=== PATIENT | female | born 1985 | race Caucasian/White ===

== ENCOUNTER 2020-03-29 16:34 | Outpatient (REF) | payer OTHER, SELFPAY ==
[2020-03-29 17:38] LABS: HCG Quantitative 19 mIU/mL
== END 2020-03-29 16:35 | disposition home or self-care (01) ==
LOC: HO.LAB 16:34
PROVIDERS: PCP Internal Medicine; Visit Provider Obstetrics & Gynecology
DX: O02.1 Missed abortion (principal)
CPT/HCPCS: 84702

== ENCOUNTER 2020-05-24 14:00 | Outpatient (REF) | payer OTHER, SELFPAY ==
[2020-05-24 15:54] LABS: HCG Quantitative < 2 mIU/mL
== END 2020-05-24 14:01 | disposition home or self-care (01) ==
LOC: HO.LAB 14:00
PROVIDERS: PCP Internal Medicine; Visit Provider Obstetrics & Gynecology
DX: O02.1 Missed abortion (principal)
CPT/HCPCS: 81025; 84702; 99212

== ENCOUNTER → 2020-08-12 11:27 | Outpatient (BNVA) | payer OTHER, SELFPAY | PROVIDERS: PCP Internal Medicine; Visit Provider Advanced Practice Midwife | DX: N92.6 Irregular menstruation, unspecified (principal); Z34.90 Encounter for supervision of normal pregnancy, unspecified, unspecified trimester | CPT/HCPCS: 99212 ==

== ENCOUNTER 2020-08-19 10:20 | Outpatient (REF) | payer OTHER, SELFPAY ==
--- NOTE | ~2020-08-19 | US_ITS ---
EXAMINATION: OBSTETRICAL ULTRASOUND, FIRST TRIMESTER HISTORY: 35-year-old at the with unknown dates NT screening COMPARISON: 03/21/2020 TECHNIQUE: Real time transabdominal imaging with color and M-mode Doppler. FINDINGS: A single, live IUP CRL of 74.8 mm c/w 13.5wks is noted. Heart Rate: 149 beats per minute. Normal yolk sac seen. NT was 1.5.mm. NB Present The embryo appears sonographically wnl for this GA. Right ovary is normal. Left ovary was not seen. GESTATIONAL AGE: 1. Established GA: Unknown wks 2. GA from [facility]: 13.5 wks ESTIMATED DATE OF DELIVERY: 1. Established VEE: N/A 2. VEE from [facility]: 02/19/2021 US/US OB 1T nuc measure IMPRESSION: A single live IUP CRL is consistent with 13.5 weeks, giving her VEE of 02/19/2021 NT of 1.5 mm MFM Consultation: I reviewed the ultrasound findings along with significance of NT measurement. The NT of less than 3mm is generally reassuring. However, the sensitivity for T21 detection is only 60%. I reviewed the availability of serum aneuploidy screening which includes cell-free DNA and placental protein based tests. I discussed the sensitivity, false-positive rate, and other limitations associated with each test. I also reviewed the availability of invasive diagnostic tests that are associated small but definite risk of miscarriage. We also reviewed the differences between screening tests and diagnostic tests. After our discussion, she opted for the First trimester screening that is based on cell-free DNA or non-invasive testing (NIPT). The result will be faxed to your office in approximately 7 days. A follow up at 18 weeks for survey has been scheduled. Thank you very much for this referral. Majority of this visit was spent reviewing her care and counselling her in face to face time: Time spent 30 min.
== END 2020-08-19 10:21 | disposition home or self-care (01) ==
LOC: HO.US 10:20
PROVIDERS: Absent Provider Obstetrics & Gynecology; PCP Internal Medicine; Visit Provider Advanced Practice Midwife
DX: O09.521 Supervision of elderly multigravida, first trimester (principal); Z3A.13 13 weeks gestation of pregnancy
CPT/HCPCS: 76813

== ENCOUNTER → 2020-08-24 11:08 | Outpatient (BNVA) | payer OTHER, SELFPAY | PROVIDERS: PCP Internal Medicine; Visit Provider Advanced Practice Midwife | DX: Z13.89 Encounter for screening for other disorder (principal) | CPT/HCPCS: 99212 ==

== ENCOUNTER 2020-08-29 10:22 | Outpatient (REF) | payer OTHER, SELFPAY ==
[2020-08-29 12:15] LABS: MANUAL DIFF FLAG NO
[2020-08-29 12:25] LABS: Basophils Percent Auto 0.1 % (0-2); Eosinophils Absolute Auto 0.1 X10*3/uL (0.0-0.4); Eosinophils Percent Auto 1.1 % (0-4); Hematocrit 34.3 % (37-47); Imm Gran Abs Auto 0.06 X10*3/uL (0.00-0.03); Imm Gran Pct Auto 0.8 % (0.0-0.4); Lymphocytes Absolute Auto 1.2 X10*3/uL (1.2-4.9); Lymphocytes Percent Auto 16.2 % (20-40); Mean Corpuscular HGB Conc 32.1 g/dl (31.0-35.0); Mean Corpuscular Hemoglobin 31.2 pg (27.0-33.0); Mean Corpuscular Volume 97.2 fL (80-98); Mean Platelet Volume 10.5 fL (9.4-12.3); Monocytes Absolute Auto 0.3 X10*3/uL (0.1-1.2); Monocytes Percent Auto 3.6 % (2-11); Neutrophils Absolute Auto 5.9 X10*3/uL (2.0-8.3); Neutrophils Percent Auto 78.2 % (45-73); Platelet Count 189 X10*3/uL (160-400); Red Blood Count 3.53 X10*6/uL (4.20-5.50); Red Cell Distribution Width 13.1 % (11.0-16.0); White Blood Count 7.6 X10*3/uL (4.8-10.8)
[2020-08-29 12:58] LABS: Glucose 1 Hour 119 mg/dL
[2020-08-29 13:17] LABS: Syphilis Screen Nonreactive (Nonreactive)
[2020-08-29 13:36] LABS: HCG Quantitative 29470 mIU/mL
[2020-08-29 14:35] LABS: Amphetamine Screen Urine Not Detected (Not Detect); Barbiturates, Urine Not Detected (Not Detect); Benzodiazepines Screen Urine Not Detected (Not Detect); Cannabinoid Screen Urine Not Detected (Not Detect); Cocaine Screen Urine Not Detected (Not Detect); Opiate Screen Urine Not Detected (Not Detect); Phencyclidine Screen Urine Not Detected (Not Detect)
[2020-08-30 04:36] LABS: HIV AB/AG Nonreactive (Nonreactive); HIV Num 1 0.07 S/CO (0.00-0.99)
[2020-08-30 04:42] LABS: HBsAGNum1 0.12 S/CO (0.00-0.99); Hepatitis B Surface Antigen Negative (Negative); ~HepC Num1 0.07 S/CO (0.00-0.79); ~Hepatitis C Antibody Nonreactive (Nonreactive)
[2020-08-31 09:47] LABS: Rubella IgG Antibody 1.26 Index
== END 2020-08-29 10:23 | disposition home or self-care (01) ==
LOC: HO.LAB 10:22
PROVIDERS: Obstetrics & Gynecology; PCP Internal Medicine; Visit Provider Advanced Practice Midwife
DX: O02.1 Missed abortion (principal)
CPT/HCPCS: 80307; 82951; 84702; 85025; 86762; 86780; 86787; 86803; 86850; 86900; 86901; 87086; 87340; 87389

== ENCOUNTER 2020-08-31 11:06 | Outpatient (REF) | payer OTHER, SELFPAY ==
[2020-08-31 16:39] LABS: CT PCR NOT DETECTED (Not Detect.); NG PCR NOT DETECTED (Not Detect.)
[2020-09-04 21:57] LABS: HPV 16 RNA NOT DETECTED (NOT DETECTED); HPV mRNA E6/E7 rflx Detected (Not Detected)
== END 2020-08-31 11:07 | disposition home or self-care (01) ==
LOC: HO.LAB 11:06
PROVIDERS: PCP Internal Medicine; Visit Provider Advanced Practice Midwife
DX: O09.522 Supervision of elderly multigravida, second trimester (principal); O09.292 Supervision of pregnancy with other poor reproductive or obstetric history, second trimester; Z3A.15 15 weeks gestation of pregnancy; Z91.018 Allergy to other foods; Z36.3 Encounter for antenatal screening for malformations
CPT/HCPCS: 36415; 81003; 87491; 87591; 87624; 87625; 88141; 88142; 99212

== ENCOUNTER 2020-09-23 12:44 | Outpatient (REF) | payer OTHER, SELFPAY ==
--- NOTE | ~2020-09-23 | US_ITS ---
EXAMINATION: US OBSTETRICAL CLINICAL INFORMATION: 35-year-old at 18.5 weeks of gestation Screening for anomaly [place]OW COMPARISON: 08/19/2020 TECHNIQUE: Real-time transabdominal ultrasound was performed using C1-5 megahertz transducer. FINDINGS: A single, active, fetus is seen in breech presentation. The placenta is posterior without previa, and the amniotic fluid volume is wnl. MEASUREMENTS: 1. Biparietal Diameter: 4.1 cm; 18.4 wks 2. Occipital Frontal Diameter: 5.4 cm 3. Head Circumference: 15.5 cm; 18.4 wks 4. Abdominal Circumference: 13.3 cm; 18.6 wks 5. Femur Length: 2.9 cm; 19.0 wks 6. Humerus Length: 2.8 cm; 18.6 wks 7. Tibia Length: 2.5 cm; 18.6 wks 8. Ulna Length: 2.5 cm; 19.0 wks 9. Lateral ventricle: 0.6 cm 10. Cerebellum: 1.4 cm; 19.1 wks 11. Cisterna Magna: 0.35 cm 12. Nuchal Fold: 2.9 mm 13. Heart Rate: 142 beats per minute Rt ovary: normal Lt ovary: normal Cervical length 3.8 cm on T/A. GESTATIONAL AGE: 1. Established GA: 18.5 wks 2. GA from [facility]: 18.6 wks ESTIMATED DATE OF DELIVERY: 1. Established VEE: 02/19/2021 2. VEE from [facility]: 02/18/2021 ANATOMY: Isolated the echogenic intracardiac focus in the left ventricle. The visualized anatomy includes but not limited to: 1. Cranium: Normal 2. Intracranial anatomy: cavum septum pellucidi, lateral ventricles, choroid plexus, cerebellum, posterior fossa, third and fourth ventricles. 3. face: orbits, lip/palate, profile, nasal bone 4. Heart: EIF, four-chamber view of the heart, ventricular septum, foramen ovale, pulmonary vein, left and right outflow tracts, three-vessel view, 3 vessel trachea view, aortic and ductal arches, situs.. 5. Diaphragm: Normal 6. Abdominal wall: Normal 7. Cord Insertion: Normal 8. Spine: Cervical, thoracic, lumbar, sacral. 9. Stomach: Normal size and shape 10. Right Kidney: Normal 11. Left Kidney: Normal 12. 3 vessel cord: Normal 13. Upper extremity: Open hands, fifth digit. 14. Lower extremity: Tibia, fibula, bilateral feet. 15. Bladder: Normal 16. Genitalia: Female, patient aware US/US OB /maternal detail IMPRESSION: 1. Single, living, intrauterine with appropriate biometry. 2. Isolated echogenic intracardiac focus 3. Normal amniotic fluid volume DISCUSSION: I reviewed today's ultrasound findings. I reviewed the association between EIF and the T 21. The likelihood ratio is approximately 2. She had low risk NIPT. I informed her that in this setting, isolated EIF is considered a normal variant. Aside from its association with Down syndrome, the clinical significance of EIF is unknown. We discussed the limitations of ultrasound in diagnosing aneuploidy and other congenital abnormalities. I reviewed the differences between screening test and diagnostic test. Amniocentesis was discussed and declined. She was informed that the baseline incidence of congenital abnormalities is approximately 3-5%. Not all these conditions are diagnosable in utero. RECOMMENDATIONS: 1. Follow-up as clinically indicated. Thank you for allowing me to participate in her care. Total time 30 minutes. The time spent was devoted to counseling the patient about the disease and diagnosis, coordinating care including reviewing her records, pertinent lab data and studies, as well as discussing diagnostic evaluation and workup, plan therapeutic interventions and future disposition of care. This includes any additional research needed to obtain further information in formulating the plan of care of this patient. This note was generated with a voice recognition program. Please excuse any errors which may have been overlooked during my review of this note. Sometimes these errors may affect the content or meaning of a given sentence.
== END 2020-09-23 12:45 | disposition home or self-care (01) ==
LOC: HO.US 12:44
PROVIDERS: PCP Internal Medicine; Visit Provider Advanced Practice Midwife
DX: O09.522 Supervision of elderly multigravida, second trimester (principal); O35.9XX0 Maternal care for (suspected) fetal abnormality and damage, unspecified, not applicable or unspecified; Z3A.18 18 weeks gestation of pregnancy
CPT/HCPCS: 76811

== ENCOUNTER → 2020-09-28 11:18 | Outpatient (BNVA) | payer OTHER, SELFPAY | PROVIDERS: PCP Internal Medicine; Visit Provider Obstetrics & Gynecology | DX: R87.610 Atypical squamous cells of undetermined significance on cytologic smear of cervix (ASC-US) (principal); R87.810 Cervical high risk human papillomavirus (HPV) DNA test positive | CPT/HCPCS: 57420; 57452; 99212 ==

== ENCOUNTER → 2020-10-11 14:27 | Outpatient (BNVA) | payer OTHER, SELFPAY | PROVIDERS: PCP Internal Medicine; Visit Provider Physician Assistant | DX: K59.09 Other constipation (principal); Z34.90 Encounter for supervision of normal pregnancy, unspecified, unspecified trimester | CPT/HCPCS: 99202 ==

== ENCOUNTER → 2020-11-01 11:08 | Outpatient (BNVA) | payer OTHER, SELFPAY | PROVIDERS: PCP Internal Medicine; Visit Provider Physician Assistant ==

== ENCOUNTER → 2020-11-03 15:04 | Outpatient (BNVA) | payer OTHER, SELFPAY | PROVIDERS: PCP Internal Medicine; Visit Provider Advanced Practice Midwife | DX: Z34.82 Encounter for supervision of other normal pregnancy, second trimester (principal); Z3A.24 24 weeks gestation of pregnancy; R19.8 Other specified symptoms and signs involving the digestive system and abdomen | CPT/HCPCS: 81003; 99212 ==

== ENCOUNTER → 2020-12-01 14:32 | Outpatient (BNVA) | payer OTHER, SELFPAY | PROVIDERS: PCP Internal Medicine; Visit Provider Advanced Practice Midwife | DX: Z34.93 Encounter for supervision of normal pregnancy, unspecified, third trimester (principal); Z3A.28 28 weeks gestation of pregnancy | CPT/HCPCS: 81003; 99212 ==

== ENCOUNTER 2020-12-12 10:25 | Outpatient (REF) | payer OTHER, SELFPAY ==
[2020-12-12 12:01] LABS: Hematocrit 31.5 % (37-47); Hemoglobin 10.3 g/dl (12.0-16.0); Mean Corpuscular HGB Conc 32.7 g/dl (31.0-35.0); Mean Corpuscular Hemoglobin 31.9 pg (27.0-33.0); Mean Corpuscular Volume 97.5 fL (80-98); Mean Platelet Volume 10.3 fL (9.4-12.3); Platelet Count 170 X10*3/uL (160-400); Red Blood Count 3.23 X10*6/uL (4.20-5.50); Red Cell Distribution Width 12.9 % (11.0-16.0); White Blood Count 7.1 X10*3/uL (4.8-10.8)
[2020-12-12 12:17] LABS: Glucose 1 Hour PP 50gm Dose 127 mg/dL (60-140)
[2020-12-12 12:42] LABS: Syphilis Screen Nonreactive (Nonreactive)
== END 2020-12-12 10:26 | disposition home or self-care (01) ==
LOC: HO.LAB 10:25
PROVIDERS: PCP Internal Medicine; Visit Provider Advanced Practice Midwife
DX: O09.529 Supervision of elderly multigravida, unspecified trimester (principal); Z20.2 Contact with and (suspected) exposure to infections with a predominantly sexual mode of transmission
CPT/HCPCS: 36415; 85027; 86780

== ENCOUNTER → 2020-12-15 13:03 | Outpatient (BNVA) | payer OTHER, SELFPAY | PROVIDERS: PCP Internal Medicine; Visit Provider Advanced Practice Midwife | DX: O99.213 Obesity complicating pregnancy, third trimester (principal); Z3A.30 30 weeks gestation of pregnancy | CPT/HCPCS: 99212 ==

== ENCOUNTER 2020-12-23 10:13 | Outpatient (REF) | payer OTHER, SELFPAY ==
--- NOTE | ~2020-12-23 | US_ITS ---
EXAMINATION: OBSTETRICAL ULTRASOUND, Follow up HISTORY: 35-year-old at the 31.5 weeks of gestation AMA High BMI COMPARISON: 09/23/2020 TECHNIQUE: Real time transabdominal imaging with color and M-mode Doppler. PRESENTATION: Vertex PLACENTA LOCATION: Posterior without previa AMNIOTIC FLUID: ANAYELI 12.4 cm MEASUREMENTS: 1. Biparietal Diameter: 7.8 cm; 31.2 wks 2. Head Circumference: 29.2 cm; 32.2 wks 3. Abdominal Circumference: 27.1 cm; 31.2 wks 4. Femur Length: 6.1 cm; 31.5 wks 5. Heart Rate: 143 beats per minute WEIGHT: EFW: 1764 grams (3 lbs 14 oz) -- 30 %. BIOPHYSICAL PROFILE: Motion: 2 Tone: 2 Breathin Amniotic Fluid: 2 Total score: 8/8 GESTATIONAL AGE: 1. Established GA: 31.5 wks 2. GA from [facility]: 31.5 wks ESTIMATED DATE OF DELIVERY: 1. Established VEE: 02/19/2021 2. VEE from [facility]: 02/19/2021 US/US OB follow up IMPRESSION: 1. A single active fetus is in vertex presentation. 2. Size equals dates 3. Reassuring biophysical profile with normal amniotic fluid index. Follow up when necessary. Thank you very much for this referral. This note was generated with a voice recognition program. Please excuse any errors which may have been overlooked during my review of this note. Sometimes these errors may affect the content or meaning of a given sentence.
== END 2020-12-23 10:14 | disposition home or self-care (01) ==
LOC: HO.US 10:13
PROVIDERS: Visit Provider Advanced Practice Midwife
DX: O99.213 Obesity complicating pregnancy, third trimester (principal); E66.9 Obesity, unspecified
CPT/HCPCS: 76816

== ENCOUNTER → 2020-12-29 10:48 | Outpatient (BNVA) | payer OTHER, SELFPAY | PROVIDERS: PCP Internal Medicine; Visit Provider Advanced Practice Midwife | DX: O99.213 Obesity complicating pregnancy, third trimester (principal); O09.523 Supervision of elderly multigravida, third trimester; Z3A.32 32 weeks gestation of pregnancy | CPT/HCPCS: 81003; 99212 ==

== ENCOUNTER → 2021-01-12 15:05 | Outpatient (BNVA) | payer OTHER, SELFPAY | PROVIDERS: PCP Internal Medicine; Visit Provider Obstetrics & Gynecology | DX: O99.213 Obesity complicating pregnancy, third trimester (principal); E66.9 Obesity, unspecified; Z3A.34 34 weeks gestation of pregnancy | CPT/HCPCS: 99212 ==

== ENCOUNTER 2021-01-26 15:22 | Outpatient (REF) | payer OTHER, SELFPAY | END 2021-01-26 15:23 | disposition home or self-care (01) | LOC: HO.LAB 15:22 | PROVIDERS: PCP Internal Medicine; Visit Provider Obstetrics & Gynecology | DX: O99.013 Anemia complicating pregnancy, third trimester (principal); Z3A.36 36 weeks gestation of pregnancy | CPT/HCPCS: 87081; 87147; 99212 ==

== ENCOUNTER 2021-01-27 10:02 | Outpatient (REF) | payer OTHER, SELFPAY ==
--- NOTE | ~2021-01-27 | US_ITS ---
EXAMINATION: OBSTETRICAL ULTRASOUND, Follow up HISTORY: 35-year-old at the 36.5 weeks of gestation AMA High BMI COMPARISON: 12/23/2020 TECHNIQUE: Real time transabdominal imaging with color and M-mode Doppler. PRESENTATION: Vertex PLACENTA LOCATION: Posterior without previa AMNIOTIC FLUID: ANAYELI 15.0 cm MEASUREMENTS: 1. Biparietal Diameter: 8.9 cm; 35.6 wks 2. Head Circumference: 33.2 cm; 37.6 wks 3. Abdominal Circumference: 32.6 cm; 36.4 wks 4. Femur Length: 7.0 cm; 36.1 wks 5. Heart Rate: 165 beats per minute WEIGHT: EFW: 2950 grams (6 lbs 8 oz) -- 48 %. BIOPHYSICAL PROFILE: Motion: 2 Tone: 2 Breathin Amniotic Fluid: 2 Total score: 8/8 GESTATIONAL AGE: 1. Established GA: 36.5 wks 2. GA from [facility]: 36.5 wks ESTIMATED DATE OF DELIVERY: 1. Established VEE: 02/19/2021 2. VEE from [facility]: 02/19/2021 US/US OB follow up IMPRESSION: 1. A single active fetus is in vertex presentation 2. Size equals dates 3. Reassuring testing Thank you very much for this referral. This note was generated with a voice recognition program. Please excuse any errors which may have been overlooked during my review of this note. Sometimes these errors may affect the content or meaning of a given sentence.
[2021-01-27 11:26] LABS: Hematocrit 32.1 % (37-47); Hemoglobin 10.6 g/dl (12.0-16.0); Mean Corpuscular Hemoglobin 31.9 pg (27.0-33.0); Mean Corpuscular Volume 96.7 fL (80-98); Mean Platelet Volume 10.4 fL (9.4-12.3); Platelet Count 164 X10*3/uL (160-400); Red Blood Count 3.32 X10*6/uL (4.20-5.50); Red Cell Distribution Width 13.5 % (11.0-16.0); White Blood Count 7.5 X10*3/uL (4.8-10.8)
[2021-01-27 11:57] LABS: Creatinine Urine 30.96 mg/dL; Total Protein Urine Random < 7 mg/dL (<12)
[2021-01-27 12:02] LABS: Alanine Aminotransferase 14 U/L (0-31); Aspartate Amino Transferase 16 U/L (5-31); Estimated Glomerular Filt Rate > 60
== END 2021-01-27 10:03 | disposition home or self-care (01) ==
LOC: HO.US 10:02
PROVIDERS: PCP Internal Medicine; Visit Provider Obstetrics & Gynecology
DX: O09.523 Supervision of elderly multigravida, third trimester (principal); O99.213 Obesity complicating pregnancy, third trimester; E66.9 Obesity, unspecified
CPT/HCPCS: 36415; 76816; 82565; 84156; 84450; 84460; 85027

== ENCOUNTER → 2021-02-02 10:35 | Outpatient (BNVA) | payer OTHER, SELFPAY | PROVIDERS: PCP Internal Medicine; Visit Provider Advanced Practice Midwife | DX: Z34.83 Encounter for supervision of other normal pregnancy, third trimester (principal); Z3A.37 37 weeks gestation of pregnancy | CPT/HCPCS: 59025; 99212 ==

== ENCOUNTER → 2021-02-07 14:12 | Outpatient (BNVA) | payer OTHER, SELFPAY | PROVIDERS: PCP Internal Medicine; Visit Provider Advanced Practice Midwife | DX: Z34.83 Encounter for supervision of other normal pregnancy, third trimester (principal); Z3A.38 38 weeks gestation of pregnancy | CPT/HCPCS: 59025; 81003; 99212 ==

== ENCOUNTER 2021-02-10 12:29 | Outpatient (REF) | payer OTHER, SELFPAY ==
--- NOTE | ~2021-02-10 | US_ITS ---
EXAMINATION: US OBSTETRICAL (BIOPHYSICAL PROFILE) CLINICAL INFORMATION: 35-year-old at the 38.0 weeks of gestation AMA High BMI COMPARISON: 01/27/2021 TECHNIQUE: Biophysical profile is performed over 30 minutes with assessment of breathing, gross body movement, tone, and qualitative amniotic fluid volume. FINDINGS: POSITION: Cephalic PLACENTA: Posterior without previa AMNIOTIC FLUID INDEX: 11.4 cm CARDIAC ACTIVITY: 134 beats per minute BIOPHYSICAL PROFILE: Motion: 2 Tone: 2 Breathin Amniotic Fluid: 2 The total biophysical score is 8/8 US/US OB biophysical profile IMPRESSION: 1. Single intrauterine gestation in vertex position. 2. Reassuring BPP and ANAYELI Thank you for allowing me to participate in her care. This note was generated with a voice recognition program. Please excuse any errors which may have been overlooked during my review of this note. Sometimes these errors may affect the content or meaning of a given sentence.
== END 2021-02-10 12:30 | disposition home or self-care (01) ==
LOC: HO.US 12:29
PROVIDERS: PCP Internal Medicine; Visit Provider Advanced Practice Midwife
DX: O09.523 Supervision of elderly multigravida, third trimester (principal); Z3A.38 38 weeks gestation of pregnancy
CPT/HCPCS: 76819

== ENCOUNTER 2021-02-16 13:34 | Outpatient (REF) | payer OTHER, SELFPAY | END 2021-02-16 13:35 | disposition home or self-care (01) | LOC: HO.US 13:34 | PROVIDERS: Visit Provider Advanced Practice Midwife | DX: O99.820 Streptococcus B carrier state complicating pregnancy (principal); O09.523 Supervision of elderly multigravida, third trimester; Z3A.39 39 weeks gestation of pregnancy | CPT/HCPCS: 59025; 99212 ==

== ENCOUNTER 2021-02-17 12:50 | Outpatient (REF) | payer OTHER, SELFPAY ==
--- NOTE | ~2021-02-17 | US_ITS ---
EXAMINATION: OBSTETRICAL ULTRASOUND, Follow up HISTORY: 35-year-old at 39.5 weeks of gestation Advanced maternal age COMPARISON: 02/10/2021 TECHNIQUE: Real time transabdominal imaging with color and M-mode Doppler. PRESENTATION: Vertex PLACENTA LOCATION: Posterior without previa AMNIOTIC FLUID: ANAYELI 7.9 cm MEASUREMENTS: 1. Biparietal Diameter: 9.1 cm; 37.1 wks 2. Head Circumference: 33.0 cm; 37.5 wks 3. Abdominal Circumference: 35.6 cm; 39.4 wks 4. Femur Length: 7.7 cm; 39.4 wks 5. Heart Rate: 140 beats per minute WEIGHT: EFW: 3642 grams (8 lbs 0 oz) -- 57 %. BIOPHYSICAL PROFILE: Motion: 2 Tone: 2 Breathin Amniotic Fluid: 2 Total score: 8/8 GESTATIONAL AGE: 1. Established GA: 39.5 wks 2. GA from A: 38.4 wks ESTIMATED DATE OF DELIVERY: 1. Established VEE: 02/19/2021 2. VEE from [facility]: 02/27/2021 US/US OB follow up IMPRESSION: 1. A single active fetus is in vertex presentation 2. Size equals dates 3. BPP score of 8 out of 8 with normal amniotic fluid index. Thank you very much for this referral. This note was generated with a voice recognition program. Please excuse any errors which may have been overlooked during my review of this note. Sometimes these errors may affect the content or meaning of a given sentence.
== END 2021-02-17 12:51 | disposition home or self-care (01) ==
LOC: HO.US 12:50
PROVIDERS: Visit Provider Advanced Practice Midwife
DX: O09.529 Supervision of elderly multigravida, unspecified trimester (principal); Z3A.39 39 weeks gestation of pregnancy
CPT/HCPCS: 76816

== ENCOUNTER → 2021-02-21 14:01 | Outpatient (BNVA) | payer OTHER, SELFPAY | PROVIDERS: PCP Internal Medicine; Visit Provider Advanced Practice Midwife | DX: O09.523 Supervision of elderly multigravida, third trimester (principal); Z3A.40 40 weeks gestation of pregnancy; O99.213 Obesity complicating pregnancy, third trimester; E66.9 Obesity, unspecified | CPT/HCPCS: 59025; 81003; 99212 ==

== ENCOUNTER 2021-04-04 10:15 | Outpatient (REF) | payer OTHER, SELFPAY ==
[2021-04-04 16:24] LABS: CT PCR NOT DETECTED (Not Detect.); NG PCR NOT DETECTED (Not Detect.)
== END 2021-04-04 10:16 | disposition home or self-care (01) ==
LOC: HO.LAB 10:15
PROVIDERS: Visit Provider Obstetrics & Gynecology
DX: Z39.2 Encounter for routine postpartum follow-up (principal); R87.610 Atypical squamous cells of undetermined significance on cytologic smear of cervix (ASC-US); R87.810 Cervical high risk human papillomavirus (HPV) DNA test positive; Z30.9 Encounter for contraceptive management, unspecified
CPT/HCPCS: 57454; 87491; 87591; 88305; 99212

== ENCOUNTER → 2021-05-01 12:24 | Outpatient (BNVA) | payer OTHER, SELFPAY | PROVIDERS: Visit Provider Obstetrics & Gynecology | DX: R87.610 Atypical squamous cells of undetermined significance on cytologic smear of cervix (ASC-US) (principal); R87.810 Cervical high risk human papillomavirus (HPV) DNA test positive | CPT/HCPCS: 99212 ==

== ENCOUNTER → 2021-05-24 12:15 | Outpatient (BNVA) | payer OTHER, SELFPAY | PROVIDERS: Visit Provider Obstetrics & Gynecology | DX: Z30.430 Encounter for insertion of intrauterine contraceptive device (principal) | CPT/HCPCS: 58300 ==

== ENCOUNTER 2022-04-18 13:58 | Outpatient (REF) | payer OTHER, SELFPAY ==
[2022-04-20 15:19] LABS: H Pylori Breath Test Negative (Negative)
== END 2022-04-18 13:59 | disposition home or self-care (01) ==
LOC: HO.LNP 13:58
PROVIDERS: Visit Provider Physician Assistant Surgical
DX: Z13.89 Encounter for screening for other disorder (principal)
CPT/HCPCS: 83013

== ENCOUNTER → 2022-04-18 15:26 | Outpatient (BNVA) | payer OTHER, SELFPAY | PROVIDERS: PCP Internal Medicine; Visit Provider Physician Assistant Surgical | DX: Z11.0 Encounter for screening for intestinal infectious diseases (principal); E66.01 Morbid (severe) obesity due to excess calories; Z68.42 Body mass index [BMI] 45.0-49.9, adult | CPT/HCPCS: 83013; 99202; 99211; 99212 ==

== ENCOUNTER → 2022-04-26 08:01 | Outpatient (REF) | payer OTHER, SELFPAY ==
--- NOTE | ~2022-04-26 | XR_ITS ---
EXAMINATION: XR CHEST CLINICAL INFORMATION: Obesity COMPARISON: None TECHNIQUE: 2 views of the chest were obtained. FINDINGS: No significant abnormality is noted involving the heart, lungs, mediastinum, bony thorax or soft tissues. XR/XR chest 2V IMPRESSION: Unremarkable examination.
--- NOTE | 2022-04-26 08:15 | ECG_ITS ---
Test Reason : obesity Blood Pressure : / mmHG Vent. Rate : 064 BPM Atrial Rate : 064 BPM P-R Int : 166 ms QRS Dur : 086 ms QT Int : 394 ms P-R-T Axes : 031 058 038 degrees QTc Int : 406 ms Normal sinus rhythm Normal ECG When compared with ECG of 27-DEC-2015 10:03, No significant change was found Referred By: Ra Cisneros Electronically Signed By:MARJORIE PARKER MD
[2022-04-26 08:17] LABS: MANUAL DIFF FLAG NO
[2022-04-26 08:48] LABS: Basophils Percent Auto 0.4 % (0-2); Eosinophils Absolute Auto 0.2 X10*3/uL (0.0-0.4); Hematocrit 36.7 % (37.0-47.0); Hemoglobin 11.9 g/dl (12.0-16.0); Imm Gran Abs Auto 0.03 X10*3/uL (0.00-0.03); Imm Gran Pct Auto 0.5 % (0.0-0.4); Lymphocytes Absolute Auto 1.6 X10*3/uL (1.2-4.9); Lymphocytes Percent Auto 27.8 % (20-40); Mean Corpuscular HGB Conc 32.4 g/dl (31.0-35.0); Mean Corpuscular Hemoglobin 30.8 pg (27.0-33.0); Mean Corpuscular Volume 95.1 fL (80.0-98.0); Mean Platelet Volume 10.5 fL (9.4-12.3); Monocytes Absolute Auto 0.3 X10*3/uL (0.1-1.2); Monocytes Percent Auto 5.8 % (2-11); Neutrophils Absolute Auto 3.5 x10*3/uL (2.0-8.3); Neutrophils Percent Auto 62.5 % (45-73); Platelet Count 203 X10*3/uL (160-400); Red Blood Count 3.86 X10*6/uL (4.20-5.50); Red Cell Distribution Width 14.2 % (11.0-16.0); White Blood Count 5.7 X10*3/uL (4.8-10.8)
[2022-04-26 09:01] LABS: Estimated Average Glucose 97 mg/dL
[2022-04-26 09:16] LABS: Alanine Aminotransferase 12 U/L (0-31); Alkaline Phosphatase 73 U/L (39-117); Anion Gap 15 (12-20); Aspartate Amino Transferase 13 U/L (5-31); Bilirubin Total 0.4 mg/dL (0.0-1.0); Blood Urea Nitrogen 14 mg/dL (9-16); C Reactive Protein 0.38 mg/dL (< or = 0.50); Calcium 8.7 mg/dL (8.4-10.2); Chloride 106 mmol/L (96-108); Cholesterol 213 mg/dL; Estimated Glomerular Filt Rate > 60; Glucose Random 85 mg/dL (60-115); HDL Cholesterol 53 mg/dL; Iron 67 mcg/dL (30-160); LDL Cholesterol Calculated 149 mg/dl; Percent Iron Saturation 18 % (15-50); Potassium 4.1 mmol/L (3.3-5.1); Sodium 138 mmol/L (135-145); Total Iron Binding Capacity 368 mcg/dL (228-428); Total Protein 7.2 g/dL (6.5-8.0); Triglycerides 55 mg/dL; Unsaturated Iron Binding 301 ug/dL
[2022-04-26 09:17] LABS: Carbon Dioxide 21 mmol/L (22-29)
[2022-04-26 09:39] LABS: Ferritin 13 ng/mL (10-122); Insulin 8 uU/mL (2-29); TSH reflex Free T4 2.03 uIU/mL (0.32-4.0); Vitamin D 25-OH Total 12.4 ng/mL (>30)
[2022-04-26 11:05] LABS: Folate 15.5 ng/mL (> or = 4.0); Vitamin B12 354 pg/mL (200-900)
[2022-04-29 21:26] LABS: Zinc 67 mcg/dL (60-130)
[2022-04-30 12:42] LABS: Calcium (PTHI) 8.6 mg/dL (8.6-10.2); PTHI 46 pg/mL (16-77)
[2022-05-01 23:31] LABS: Vitamin A 33 mcg/dL (38-98)
[2022-05-03 05:52] LABS: Vitamin B1 6 nmol/L (8-30)
== END ==
LOC: HO.CARD 08:01
PROVIDERS: PCP Internal Medicine; Visit Provider Physician Assistant Surgical
DX: E66.01 Morbid (severe) obesity due to excess calories (principal)
CPT/HCPCS: 36415; 71046; 80053; 80061; 82306; 82607; 82728; 82746; 83036; 83525; 83540; 83970; 84425; 84443; 84590; 84630; 85025; 86140; 93005

== ENCOUNTER 2022-05-09 09:47 | Outpatient (REF) | payer OTHER, SELFPAY ==
[2022-05-10 03:42] LABS: CT PCR NOT DETECTED (Not Detect.); NG PCR NOT DETECTED (Not Detect.)
[2022-05-11 23:47] LABS: HPV mRNA E6/E7 rflx Not Detected (Not Detected)
== END 2022-05-09 09:48 | disposition home or self-care (01) ==
LOC: HO.LNP 09:47
PROVIDERS: PCP Internal Medicine; Visit Provider Obstetrics & Gynecology
DX: Z30.432 Encounter for removal of intrauterine contraceptive device (principal); Z11.51 Encounter for screening for human papillomavirus (HPV)
CPT/HCPCS: 58301; 81025; 87491; 87591; 87624; 88142

== ENCOUNTER → 2022-05-10 11:00 | Outpatient (BNVA) | payer OTHER, SELFPAY | PROVIDERS: PCP Internal Medicine; Referring Provider Physician Assistant Surgical; Visit Provider Counselor Mental Health | DX: F43.21 Adjustment disorder with depressed mood (principal); E66.01 Morbid (severe) obesity due to excess calories | CPT/HCPCS: 90791 ==

== ENCOUNTER → 2022-05-15 15:54 | Outpatient (BNVA) | payer OTHER, SELFPAY | PROVIDERS: PCP Internal Medicine; Referring Provider Physician Assistant Surgical; Visit Provider Dietitian, Registered | DX: E66.01 Morbid (severe) obesity due to excess calories (principal) | CPT/HCPCS: 97802 ==

== ENCOUNTER → 2022-06-05 11:00 | Outpatient (BNVA) | payer OTHER, SELFPAY | PROVIDERS: PCP Internal Medicine; Visit Provider Counselor Mental Health | DX: F43.21 Adjustment disorder with depressed mood (principal); E66.01 Morbid (severe) obesity due to excess calories | CPT/HCPCS: 90834 ==

== ENCOUNTER → 2022-06-06 09:23 | Outpatient (BNVA) | payer OTHER, SELFPAY | PROVIDERS: PCP Internal Medicine; Visit Provider Surgery | DX: E66.01 Morbid (severe) obesity due to excess calories (principal); Z68.41 Body mass index [BMI] 40.0-44.9, adult; E55.9 Vitamin D deficiency, unspecified; E53.9 Vitamin B deficiency, unspecified; F43.21 Adjustment disorder with depressed mood | CPT/HCPCS: 99202 ==

== ENCOUNTER 2022-06-08 07:52 | Outpatient (REF) | payer OTHER, SELFPAY ==
--- NOTE | ~2022-06-08 | US_ITS ---
EXAMINATION: US COMPLETE ABDOMEN WITH LIVER ELASTOGRAPHY CLINICAL INFORMATION: Morbid to severe obesity. COMPARISON: None. TECHNIQUE: Real-time imaging of the abdominal viscera. Noninvasive ultrasound liver fibrosis assessment is performed using Erendira ElastPQ point quantification shear wave elastography (2D-SWE) with a C5-2 MHz transducer. Multiple elastography samples are obtained. FINDINGS: PANCREAS: Normal. The visualized pancreatic head and body are normal in appearance. The remainder of the pancreas is obscured from visualization by the overlying bowel gas. ABDOMINAL AORTA: The proximal, middle, and distal aortic segments are normal in caliber. INFERIOR VENA CAVA: Visualized portions are normal. LIVER: Normal. The liver demonstrates normal size, contour and echogenicity. No focal lesion or intrahepatic biliary duct dilatation. The right lobe measures 17.7 cm in length. The left lobe measures 11.6 cm in length. Portal flow is hepatopeda.l Shear wave liver elastography median stiffness is 1.49 m/s (reference: normal median stiffness is 1.3 m/s or less). IQR/median stiffness to assess sampling precision is 0.15 (reference: good quality data set is IQR/median stiffness of 0.15 or less). GALLBLADDER: Normal. The gallbladder is physiologically distended without evidence of stones, sludge, polyps, wall thickening or pericholecystic fluid. COMMON BILE DUCT: Normal in caliber measuring 0.3 cm in diameter. RIGHT KIDNEY: Normal. No hydronephrosis. No renal calculi or focal parenchymal lesions. The kidney measures 11.0 cm in maximum dimension. LEFT KIDNEY: Normal. No hydronephrosis. No renal calculi or focal parenchymal lesions. The kidney measures 11.3 cm in maximum dimension. SPLEEN: Normal. The spleen measures 11.0 cm in maximum dimension. FREE FLUID: None. US/US abdomen comp w elastography IMPRESSION: 1. Unremarkable complete abdomen ultrasound. 2. Liver elastography: Median liver stiffness measures 1.49 corresponding to cACLD (ruled out). REFERENCE: Society of Radiologists in Ultrasound Liver Stiffness Thresholds (2019): LIVER STIFFNESS THRESHOLDS: *Liver Stiffness equal or less than 1.3 m/s: High probability of being normal. *Liver Stiffness less than 1.7 m/s: In the absence of other known clinical signs, rules out compensated advanced chronic liver disease. *Liver Stiffness 1.7-2.1 m/s: Suggestive of compensated advanced chronic liver disease but need further test for confirmation. *Liver Stiffness over 2.1 m/s: Rules in compensated advanced chronic liver disease. *Liver Stiffness over 2.4 m/s: Suggestive of clinically significant portal hypertension. QUALITY OF DATA SET: *IQR/Median value equal or less than 0.15 implies a quality data set. *IQR/Median value over 0.15 implies a poor quality data set. SIGNIFICANT CHANGE FROM PRIOR EXAM: Significant change if liver stiffness measurement is 10% or greater from prior exam. OTHER CONSIDERATIONS: The stage of liver fibrosis may be overestimated in the setting of acute hepatitis, liver inflammation, elevated liver function tests, hepatic vascular congestion, obstructive cholestasis, non-fasting state, and infiltrative diseases such as amyloidosis and lymphoma. In some patients with NAFLD, the liver stiffness thresholds for compensated advanced chronic liver disease may be lower. In causes other than viral hepatitis and NAFLD, liver stiffness thresholds are not well established.
--- NOTE | ~2022-06-08 | FL_ITS ---
PROCEDURE: XR FLUOROSCOPY UPPER GI WITH AIR CLINICAL INFORMATION: Morbid to severe obesity due to excess calories. COMPARISON: None TECHNIQUE: Routine upper GI air-contrast study was performed in upright and lying position. FINDINGS: Following oral administration of thick barium and effervescent granules there is normal propagation of bolus from the oral cavity through the pharynx, esophagus into stomach without any evidence of obstruction, narrowing or stricture. On placing patient supine and prone lying the course, caliber and peristalsis of stomach, duodenal bulb and the sweep are normal. There is mild gastroesophageal reflux without hiatal hernia. The mucosal pattern of the stomach, duodenal bulb and the sweep is normal. There is evidence of previous cholecystectomy. FLUOROSCOPY TIME: 0.9 minutes DOSE AREA PRODUCT: 19.941 uGy-m2 (microgray-meter squared) FL/FL upper GI w air IMPRESSION: Mild gastroesophageal reflux without hiatal hernia.
== END 2022-06-08 07:53 | disposition home or self-care (01) ==
LOC: HO.US 07:52
PROVIDERS: Visit Provider Physician Assistant Surgical
DX: E66.01 Morbid (severe) obesity due to excess calories (principal)
CPT/HCPCS: 74246; 76705; 76981

== ENCOUNTER → 2022-06-19 10:02 | Outpatient (BNVA) | payer OTHER, SELFPAY | PROVIDERS: PCP Internal Medicine; Visit Provider Physician Assistant Surgical | DX: Z13.89 Encounter for screening for other disorder (principal) ==

== ENCOUNTER → 2022-07-17 11:10 | Outpatient (BNVA) | payer OTHER, SELFPAY | PROVIDERS: PCP Internal Medicine; Visit Provider Physician Assistant Surgical | DX: Z13.89 Encounter for screening for other disorder (principal) ==

== ENCOUNTER → 2022-07-24 14:00 | Outpatient (BNVA) | payer OTHER, SELFPAY | PROVIDERS: PCP Internal Medicine; Visit Provider Counselor Mental Health | DX: F43.21 Adjustment disorder with depressed mood (principal); E66.01 Morbid (severe) obesity due to excess calories | CPT/HCPCS: 90832 ==

== ENCOUNTER → 2022-08-02 15:22 | Outpatient (BNVA) | payer OTHER, SELFPAY | PROVIDERS: PCP Internal Medicine; Referring Provider Internal Medicine; Visit Provider Surgery | DX: E66.01 Morbid (severe) obesity due to excess calories (principal); E53.9 Vitamin B deficiency, unspecified; E55.9 Vitamin D deficiency, unspecified; F43.21 Adjustment disorder with depressed mood; Z68.41 Body mass index [BMI] 40.0-44.9, adult; Z90.49 Acquired absence of other specified parts of digestive tract | CPT/HCPCS: 99212 ==

== ENCOUNTER → 2022-08-03 08:39 | Outpatient (BNVA) | payer OTHER, SELFPAY | PROVIDERS: PCP Internal Medicine; Visit Provider Surgery | DX: Z13.89 Encounter for screening for other disorder (principal) ==

== ENCOUNTER 2022-08-29 | Outpatient (REF) | payer OTHER, SELFPAY ==
[2022-08-01 10:41] VITALS: BMI 41.3
[2022-08-03 08:18] LABS: MANUAL DIFF FLAG NO
[2022-08-03 08:46] LABS: Basophils Percent Auto 0.4 % (0-2); Eosinophils Absolute Auto 0.1 X10*3/uL (0.0-0.4); Eosinophils Percent Auto 2.9 % (0-4); Hematocrit 35.6 % (37.0-47.0); Hemoglobin 11.7 g/dl (12.0-16.0); Imm Gran Abs Auto 0.01 X10*3/uL (0.00-0.03); Imm Gran Pct Auto 0.2 % (0.0-0.4); Lymphocytes Absolute Auto 1.2 X10*3/uL (1.2-4.9); Mean Corpuscular HGB Conc 32.9 g/dl (31.0-35.0); Mean Corpuscular Volume 94.2 fL (80.0-98.0); Mean Platelet Volume 10.7 fL (9.4-12.3); Monocytes Absolute Auto 0.3 X10*3/uL (0.1-1.2); Monocytes Percent Auto 7.1 % (2-11); Neutrophils Absolute Auto 3.1 x10*3/uL (2.0-8.3); Neutrophils Percent Auto 65.4 % (45-73); Platelet Count 212 X10*3/uL (160-400); Red Blood Count 3.78 X10*6/uL (4.20-5.50); Red Cell Distribution Width 14.2 % (11.0-16.0); White Blood Count 4.8 X10*3/uL (4.8-10.8)
[2022-08-03 08:51] LABS: INTERNATIONAL NORM RATIO 1.2 (0.9-1.1); Prothrombin Time 13.6 SEC (10.0-13.1)
[2022-08-03 08:52] LABS: Estimated Average Glucose 103 mg/dL; Hemoglobin A1c % 5.2 %
[2022-08-03 08:54] LABS: Partial Thromboplastin Time 30.1 SEC (26.0-36.4)
[2022-08-03 09:23] LABS: Alanine Aminotransferase 10 U/L (0-31); Albumin Level 4.1 g/dL (3.5-5.0); Alkaline Phosphatase 66 U/L (39-117); Anion Gap 13 (12-20); Aspartate Amino Transferase 12 U/L (5-31); Bilirubin Total 0.4 mg/dL (0.0-1.0); Blood Urea Nitrogen 13 mg/dL (9-16); C Reactive Protein 0.43 mg/dL (< or = 0.50); Carbon Dioxide 24 mmol/L (22-29); Chloride 107 mmol/L (96-108); Cholesterol 196 mg/dL; Estimated Glomerular Filt Rate > 60; Glucose Random 93 mg/dL (60-115); HDL Cholesterol 45 mg/dL; Iron 28 mcg/dL (30-160); LDL Cholesterol Calculated 137 mg/dl; Percent Iron Saturation 10 % (15-50); Sodium 140 mmol/L (135-145); Total Iron Binding Capacity 284 mcg/dL (228-428); Total Protein 7.2 g/dL (6.5-8.0); Triglycerides 72 mg/dL; Unsaturated Iron Binding 256 ug/dL
[2022-08-03 09:57] LABS: Ferritin 33 ng/mL (10-122); TSH reflex Free T4 1.72 uIU/mL (0.32-4.0); Vitamin B12 767 pg/mL (200-900); Vitamin D 25-OH Total 20.8 ng/mL (>30)
[2022-08-06 13:15] LABS: Calcium (PTHI) 8.9 mg/dL (8.6-10.2); PTHI 24 pg/mL (16-77)
[2022-08-07 17:17] LABS: Zinc 66 mcg/dL (60-130)
[2022-08-09 01:03] LABS: Vitamin A 32 mcg/dL (38-98)
[2022-08-10 16:42] LABS: Vitamin B1 118 nmol/L (8-30)
== END 2022-08-29 00:01 | disposition home or self-care (01) ==
LOC: HO.PAT
PROVIDERS: Visit Provider Surgery
DX: Z01.818 Encounter for other preprocedural examination (principal); E66.01 Morbid (severe) obesity due to excess calories; E55.9 Vitamin D deficiency, unspecified; E53.8 Deficiency of other specified B group vitamins
CPT/HCPCS: 36415; 80053; 80061; 82306; 82607; 82728; 83036; 83540; 83970; 84425; 84443; 84590; 84630; 85025; 85610; 85730; 86140; 86850; 86900; 86901

== ENCOUNTER 2022-10-16 08:46 | Emergency (ER) | payer OTHER, SELFPAY ==
--- NOTE | 2022-10-16 08:52 | ECG_ITS ---
Test Reason : cp Blood Pressure : / mmHG Vent. Rate : 078 BPM Atrial Rate : 078 BPM P-R Int : 142 ms QRS Dur : 080 ms QT Int : 382 ms P-R-T Axes : 032 032 029 degrees QTc Int : 435 ms Normal sinus rhythm Normal ECG When compared with ECG of 26-APR-2022 08:32, No significant change was found Referred By: Generic ED Physician Electronically Signed By:Thony Villagomez
--- NOTE | 2022-10-16 08:59 | ED.CHESTPAIN ---
HPI - Chest Pain General Chief Complaint: Chest Pain Stated Complaint: L side chest tightness Time Seen by Provider: 10/16/22 08:57 Source: patient Mode of arrival: ambulatory History of Present Illness HPI narrative: 37-year-old female who presents with left anterior chest discomfort for 4 days that has not been associated with nausea, diaphoresis, shortness of breath but states that she has had increased discomfort with movement of the left arm stating that it ?seems to extend into the left axilla . Patient denies any fever, chills, new cough, new exercise regimen or any short pushing/pulling activities. Patient states that she feels better if she holds her breast. Related Data Previous Rx's Medication Instructions Recorded cholecalciferol (vitamin D3) 125 125 mcg PO DAILY #30 caps 04/26/22 mcg (5,000 unit) capsule cyanocobalamin (vitamin B-12) 500 500 mcg PO DAILY #30 tabs 04/26/22 mcg tablet thiamine HCl (vitamin B1) 100 mg 100 mg PO DAILY #30 tabs 05/04/22 tablet vitamin A palmitate 3,000 mcg 10,000 unit PO DAILY #30 tabs 05/31/22 (10,000 unit) tablet acetaminophen 500 mg/15 mL oral 500 mg (15 mL) PO Q6H PRN fever or 08/02/22 liquid pain #237 mL ondansetron HCl 4 mg tablet 4 mg PO Q6H PRN nausea and 08/02/22 vomiting #20 tabs pantoprazole 40 mg tablet,delayed 40 mg PO QAM 30 days #30 tabs 08/02/22 release polyethylene glycol 3350 17 gram See Rx Instructions PO DAILY #14 08/02/22 oral powder packet (Miralax) packets sucralfate 100 mg/mL oral 10 ml PO BID 30 days #600 mL 08/02/22 suspension Allergies Allergy/AdvReac Type Severity Reaction Status Date / Time carrot [CARROT] Allergy Intermediate itchy Verified 08/02/22 15:35 mouth and lips raw vegetable Allergy Intermediate Itchy Verified 08/02/22 15:35 mouth and lips FRUIT Allergy Intermediate itchy Uncoded 08/02/22 15:35 mouth and lips Review of Systems Review of Systems: Pertinent positives and negatives as stated in HPI PMFSH Past Medical History Source: nursing notes reviewed Medical History ASCUS with positive high risk HPV Constipation Encounter for PPD skin test reading Obesity affecting in third trimester, antepartum Surgical History History of laparoscopic cholecystectomy Hx of tonsillectomy Family History Family History Mother History of hypertension History of prediabetes Maternal Grandmother History of uncontrolled diabetes Maternal Grandfather Hx of cardiac arrest Daughter Brain cancer Social History Social History Household Members: Spouse and Children Housing: House Are you a primary adult daycare coordinator to a significant other at home: Yes (1 yr old child) Do you presently have visiting nurse or other home services: No Alcohol intake: never Patient Tobacco Use Status: Never used Tobacco Advance Directives: Yes Advance Directives Information Provided: Yes Advance Directives on File: No Current occupational status: employed 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 GENERAL: Elevated BMI, Well developed, well nourished, in no acute distress. HEAD: Normocephalic/atraumatic EYES: PERRLA, EOMI EARS: Ext canals without abnormality NOSE: Nares patent bilateral OROPHARYNX: no oral lesions noted, posterior pharynx clear NECK: Supple, no adenopathy LUNGS: Normal breath sounds. No adventitious sounds or accessory muscle use. CARDIOVASCULAR: Regular rate and rhythm without noted murmurs, no JVD or lower extremity edema. ABDOMEN: Soft, non-tender, non-distended with bowel sounds. MUSCULOSKELETAL: No tenderness, deformities, or effusions noted on gross inspection. EXTREMITIES: No cyanosis, clubbing or edema. SKIN: Inspection of the skin reveals no rashes NEUROLOGIC: Alert and oriented x 4. Strength and sensation to light touch were grossly intact x 4. Medical Decision Making Medical Decision Making MDM Narrative: 37-year-old female with history and clinical presentation for atypical chest pain, PERC negative. - labs, EKG, UA I reviewed all investigations, also discussed the results with the patient, my interpretation is that patient may have strained a muscle caring her child/picking up her child as there are no other acute findings. Patient is otherwise stable for discharge to home. Differential Diagnosis Please see the discussion above Lab Data Please see the discussion above 10/16/22 10:07 10/16/22 10:07 Labs: Lab Results 10/16/22 10/16/22 10/16/22 Range/Units 10:07 10:07 13:55 WBC 6.2 (4.8-10.8) X10*3/uL RBC 3.73 L (4.20-5.50) X10*6/uL Hgb 11.5 L (12.0-16.0) g/dl Hct 35.1 L (37.0-47.0) % MCV 94.1 (80.0-98.0) fL MCH 30.8 (27.0-33.0) pg MCHC 32.8 (31.0-35.0) g/dl RDW 14.4 (11.0-16.0) % Plt Count 191 (160-400) X10*3/uL MPV 10.0 (9.4-12.3) fL Immature Gran % (Auto) 0.3 (0.0-0.4) % Neut % (Auto) 69.3 (45-73) % Lymph % (Auto) 22.4 (20-40) % [place] % (Auto) 6.1 (2-11) % Eos % (Auto) 1.6 (0-4) % Baso % (Auto) 0.3 (0-2) % Lymph # (Auto) 1.4 (1.2-4.9) X10*3/uL [place] # (Auto) 0.4 (0.1-1.2) X10*3/uL Eos # (Auto) 0.1 (0.0-0.4) X10*3/uL Baso # (Auto) 0.0 (0.0-0.2) X10*3/uL Abs Immat Gran (auto) 0.02 (0.00-0.03) X10*3/uL Absolute Neuts (auto) 4.3 (2.0-8.3) x10*3/uL Absolute Nucleated RBC 0.000 (0.0-0.012) X10*3/uL Nucleated RBC % (auto) 0.0 (0.0-0.2) /100WBC Sodium 140 (135-145) mmol/L Potassium 4.0 (3.3-5.1) mmol/L Chloride 109 H (96-108) mmol/L Carbon Dioxide 23 (22-29) mmol/L Anion Gap 12 (12-20) BUN 10 (9-16) mg/dL Creatinine 0.69 (0.5-1.4) mg/dL Estim Creat Clear Calc 126.8 Estimated GFR > 60 Random Glucose 92 (60-115) mg/dL Calcium 8.8 (8.4-10.2) mg/dL Total Bilirubin 0.6 (0.0-1.0) mg/dL AST 12 (5-31) U/L ALT 12 (0-31) U/L Alkaline Phosphatase 76 (39-117) U/L Troponin I High Sens < 2.7 (<3.5-17.0) ng/L Total Protein 7.5 (6.5-8.0) g/dL Albumin 4.2 (3.5-5.0) g/dL Lipase 23 (8-78) U/L Independent Interpretation I performed an independent interpretation of an: EKG Interpretation: Normal sinus rhythm, HR-78, no STEMI, NM/QRS/QTC is within normal limits. External Record Review External record reviewed: Outpatient record and Prior outpatient labs Discharge Plan Discharge Clinical Impression: Muscle strain of chest wall Patient Disposition: Home, Self-Care Instructions: Muscle Strain (ED), Chest Wall Pain (ED) Additional Instructions: 1. Resume all home medications as prescribed. 2. Recommend [id number] Tylenol and possible lidocaine patch for additional symptom relief. 3. Follow-up with primary care provider. Return to the ER for any worsening symptoms. Prescriptions: No Action cholecalciferol (vitamin D3) 125 mcg (5,000 unit) capsule 125 mcg PO DAILY Qty: 30 2RF cyanocobalamin (vitamin B-12) 500 mcg tablet 500 mcg PO DAILY Qty: 30 2RF thiamine HCl (vitamin B1) 100 mg tablet 100 mg PO DAILY Qty: 30 2RF vitamin A palmitate 10,000 unit tablet 10,000 unit PO DAILY Qty: 30 0RF polyethylene glycol 3350 [Miralax] 17 gram powder in packet See Rx Instructions PO DAILY Qty: 14 0RF Rx Instructions: Take 7 packets 2 days before surgery and 7 packets 1 day before surgery. Mix each packet with 8 oz's of water before surgery. sucralfate 100 mg/mL suspension 10 ml PO BID 30 Days Qty: 600 2RF ondansetron HCl 4 mg tablet 4 mg PO Q6H PRN (Reason: nausea and vomiting) Qty: 20 0RF pantoprazole 40 mg tablet,delayed release (DR/EC) 40 mg PO QAM 30 Days Qty: 30 2RF acetaminophen 500 mg/15 mL liquid 500 mg PO Q6H PRN (Reason: fever or pain) Qty: 237 2RF Referrals: Shakeel Conway MD [Primary Care Provider] -
[2022-10-16 09:39] VITALS: BP 104/63; PULSE 74; RESP 22; TEMP 37.1; O2SAT 99; BMI 43.0
[2022-10-16 10:12] LABS: MANUAL DIFF FLAG NO
[2022-10-16 10:13] LABS: Basophils Percent Auto 0.3 % (0-2); Eosinophils Absolute Auto 0.1 X10*3/uL (0.0-0.4); Eosinophils Percent Auto 1.6 % (0-4); Hematocrit 35.1 % (37.0-47.0); Hemoglobin 11.5 g/dl (12.0-16.0); Imm Gran Abs Auto 0.02 X10*3/uL (0.00-0.03); Imm Gran Pct Auto 0.3 % (0.0-0.4); Lymphocytes Absolute Auto 1.4 X10*3/uL (1.2-4.9); Lymphocytes Percent Auto 22.4 % (20-40); Mean Corpuscular HGB Conc 32.8 g/dl (31.0-35.0); Mean Corpuscular Hemoglobin 30.8 pg (27.0-33.0); Mean Corpuscular Volume 94.1 fL (80.0-98.0); Monocytes Absolute Auto 0.4 X10*3/uL (0.1-1.2); Monocytes Percent Auto 6.1 % (2-11); Neutrophils Absolute Auto 4.3 x10*3/uL (2.0-8.3); Neutrophils Percent Auto 69.3 % (45-73); Platelet Count 191 X10*3/uL (160-400); Red Blood Count 3.73 X10*6/uL (4.20-5.50); Red Cell Distribution Width 14.4 % (11.0-16.0); White Blood Count 6.2 X10*3/uL (4.8-10.8)
--- NOTE | 2022-10-16 11:00 | PC.NURSE ---
pt a+o x4, vss, she c/o 5/10 chest tightness that radiates down her side. she says that the pain started 4 days ago and has progressively gotten worse since then. she denies sob/n/v/d/fever. no numbness/tingling.
[2022-10-16 13:09] LABS: Alanine Aminotransferase 12 U/L (0-31); Albumin Level 4.2 g/dL (3.5-5.0); Alkaline Phosphatase 76 U/L (39-117); Anion Gap 12 (12-20); Aspartate Amino Transferase 12 U/L (5-31); Bilirubin Total 0.6 mg/dL (0.0-1.0); Blood Urea Nitrogen 10 mg/dL (9-16); Calcium 8.8 mg/dL (8.4-10.2); Carbon Dioxide 23 mmol/L (22-29); Chloride 109 mmol/L (96-108); Creatinine Clr Calc Pharmacy 126.8; Estimated Glomerular Filt Rate > 60; Glucose Random 92 mg/dL (60-115); Lipase 23 U/L (8-78); Sodium 140 mmol/L (135-145); Total Protein 7.5 g/dL (6.5-8.0)
[2022-10-16 14:31] LABS: Troponin-I High Sensitivity < 2.7 ng/L (<3.5-17.0)
--- NOTE | 2022-10-16 15:11 | PC.NURSE ---
pt cleared for discharge, discharge instructions reviewed with pt.
== END 2022-10-16 15:15 | disposition home or self-care (01) ==
PROVIDERS: Emergency Provider Student in an Organized Health Care Education/Training Program; PCP Internal Medicine
DX: S29.011A Strain of muscle and tendon of front wall of thorax, initial encounter (principal); X58.XXXA Exposure to other specified factors, initial encounter; Y93.9 Activity, unspecified; Y92.9 Unspecified place or not applicable; Y99.9 Unspecified external cause status
CPT/HCPCS: 36415; 80053; 83690; 84484; 85025; 93005; 99283

== ENCOUNTER 2022-10-31 08:45 | Outpatient (REF) | payer OTHER, SELFPAY | END 2022-10-31 08:46 | disposition home or self-care (01) | LOC: HO.LNP 08:45 | PROVIDERS: PCP Internal Medicine; Visit Provider Obstetrics & Gynecology | DX: R87.615 Unsatisfactory cytologic smear of cervix (principal) | CPT/HCPCS: 88142; 99212 ==

== ENCOUNTER 2023-02-20 15:46 | Outpatient (AMB) | payer OTHER, SELFPAY ==
--- NOTE | 2023-02-20 16:09 | AM.OFFVISNUR ---
Intake Intake Visit Reasons: PPD Plant Allergies carrot [CARROT] Allergy (Intermediate, Verified 10/31/22 08:53) itchy mouth and lips raw vegetable Allergy (Intermediate, Verified 10/31/22 08:53) Itchy mouth and lips FRUIT Allergy (Intermediate, Uncoded 10/31/22 08:53) itchy mouth and lips Office Meds tuberculin PPD Performing Provider: Shakeel Conway MD Administered by: Emilee Martel RN on 02/20/23 16:09 Dose Route Admin Location Lot Number Expiration Date 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
== END 2023-02-20 16:10 | disposition home or self-care (01) ==
PROVIDERS: PCP Internal Medicine; Visit Provider Internal Medicine
DX: Z11.1 Encounter for screening for respiratory tuberculosis (principal)
CPT/HCPCS: 86580

== ENCOUNTER 2023-04-22 07:29 | Outpatient (AMB) | payer OTHER, SELFPAY ==
[2023-04-22 07:40] VITALS: BP 108/72; PULSE 72; O2SAT 99; BMI 42.2
--- NOTE | 2023-04-22 07:40 | A.OFFPC_ITS ---
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 Accompanied by: Self / Same As Patient Allergies carrot [CARROT] Allergy (Intermediate, Verified 04/22/23 07:41) itchy mouth and lips raw vegetable Allergy (Intermediate, Verified 04/22/23 07:41) Itchy mouth and lips FRUIT Allergy (Intermediate, Uncoded 10/31/22 08:53) itchy mouth and lips Tobacco use date assessed: 04/22/23 Dental Screening Dental Screen Date: 04/22/23 Did you have a dental visit in the last 12 months?: Yes Did you have a dental problem in the last 6 months where you did not have access to dental care?: No Was dental information given to patient?: Patient has dentist HPI HPI Comments History of Present Illness Details 37-year-old female past medical history significant for constipation, obesity, vitamin-D deficiency and adjustment disorder. Patient of Dr. Conway last seen few years ago. Patient presents today for physical exam. Patient denies any acute concerns. Denies chest pain, palpitations, shortness of breath and syncope. Review of the notes patient was seen in the emergency room in September with chest wall muscle strain EKG troponin unremarkable. Patient reports she was under a lot of stress at the time related to her daughter's health. Patient denies anxiety or depression. Up-to-date on Tdap, declined flu shot today states she will get it at her pharmacy. Patient reports eye exam current. Fasting labs ordered [facility] Medical History Obesity affecting in third trimester, antepartum ASCUS with positive high risk HPV Encounter for PPD skin test reading Constipation Surgical History Hx of tonsillectomy History of laparoscopic cholecystectomy Family History Mother History of hypertension History of prediabetes Maternal Grandmother History of uncontrolled diabetes Maternal Grandfather Hx of cardiac arrest Daughter Brain cancer Social History Household Members: Spouse and Children Housing: House Are you a primary caregivers homecare to a significant other at home: Yes (1 yr old child) Do you presently have visiting nurse or other home services: No Alcohol intake: never Patient Tobacco Use Status: Never used Tobacco e-Cigarette/Vaping Use: Never Used Second Hand Smoke Exposure: No service: No Current occupational status: employed 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 1. Little interest or pleasure in doing things: not at all 2. Feeling down, depressed, or hopeless: not at all 3. Trouble falling or staying asleep, or sleeping too much: not at all 4. Feeling tired or having little energy: not at all 5. Poor appetite or overeating: not at all 6. Feeling bad about yourself - or that you are a failure or have let yourself or your family down: not at all 7. Trouble concentrating on things, such as reading the newspaper or watching television: not at all 8. Moving or speaking so slowly that other people could have noticed. Or the opposite - being so fidgety or restless that you have been moving around a lot more than usual: not at all 9. Thoughts that you would be better off or of hurting yourself in some way: not at all Total score: 0 Depression Screening Interpretation: Negative Depression Screening Done: Yes 42915 - PHQ-9 Billing: Yes Source: Developed by Drs. Renan Funes, Vanesa Manzanares, Yandel Robertson and colleagues, with an educational sonny from [employer]. Thrive Questionnaire Date Thrive assessed: 04/22/23 I am a: Patient What is your living situation today?: I have a steady place to live Within the past 12 months, did the food you bought not last and you didn't have the money to get more?: Never true Within the past 12 months, did you worry whether your food would run out before you got money to buy more?: Never true Do you have trouble paying for medicines?: No Do you have trouble getting transportation to medical appointments?: No Do you have trouble paying your heating and electricity bill?: No Do you have trouble taking care of your child, family member or friend?: No Do you have trouble with day-to-day activities such as bathing, preparing meals, shopping, managing finances, etc.?: No Are you currently unemployed and looking for a job?: No Are you interested in more education?: No Please select the resources that you would like help with: None Currently or been in a relationship where the following occur: no concerns reported AUDIT C Alcohol Use Questionnaire (AUDIT-C) 1. How often do you have a drink containing alcohol?: Never Total Score: 0 ANNABELLE-7 AMB Questionnaire ANNABELLE-7 Date ANNABELLE - 7 assessed: 04/22/23 Feeling nervous, anxious, or on edge: 0 = Not at all Not being able to stop or control worryin = Not at all Worrying too much about different things: 0 = Not at all Trouble relaxin = Not at all Being so restless that it is hard to sit still: 0 = Not at all Becoming easily annoyed or irritable: 0 = Not at all Feeling afraid as if something awful might happen: 0 = Not at all Total ANNABELLE-7 score (0-4 normal; 5-9 mild; 10-14 moderate; 15-21 severe): 0 Source: Developed by Drs. Renan Funes, Vanesa Manzanares, Yandel Robertson and colleagues, with an educational sonny from [employer]. ANNABELLE-7 Assessment Billing ANNABELLE-7 Assessment Tool: ANNABELLE-7 Assessment 80324 Review of Systems Const Denies chills, Denies fatigue, Denies fever(s) and Denies poor appetite Eyes Denies no additional complaints ENT Reports Normal hearing present Card Denies chest pain, Denies syncope, Denies rapid heart rate and Denies dyspnea Resp Denies cough and Denies dyspnea GI Denies change in stool character, Denies constipation, Denies diarrhea, Denies nausea and Denies vomiting Denies urinary frequency, Denies dysuria and Denies urinary urgency Neuro Reports Normal hearing present, Denies confusion and Denies syncope Psych Denies confusion Endo Denies fatigue Physical exam (Primary Care) Vital Signs: Last Vital Signs Pulse 72 04/22/23 07:40 BP 108/72 04/22/23 07:40 Pulse Ox 99 04/22/23 07:40 Oxygen Delivery Method Room Air 04/22/23 07:40 BMI result Body Mass Index 42.2 Tobacco/Smoking Status: Tobacco use Status Tobacco use date assessed 04/22/23 04/22/23 07:44 Patient Tobacco Use Status Never used Tobacco 04/22/23 07:44 e-Cigarette/Vaping Use Never Used 04/22/23 07:44 PHQ-9: PHQ-9 Score PHQ-9: Total score 0 04/22/23 07:44 Depression Screening Interpretation: Negative Thrive Assessment: Date of Thrive Assessment Date Thrive assessed 04/22/23 04/22/23 07:44 Currently or been in a relationship where the following occur: no concerns reported Const General: No confusion Orientation/consciousness: No confusion HENMT Head: Yes normocephalic and Yes atraumatic Ears: external ears normal and TM's normal bilaterally General nose exam: Normal external nose present and Normal nasal mucous membranes and turbinates present Face and sinus: Yes normal facial exam and Yes sinuses nontender Mouth: moist mucous membranes Throat: Yes tonsils normal Eyes Conjunctivae: conjunctivae normal Sclerae: sclerae normal Pupils: Equal, round and reactive pupils present and Pupils normal by confrontation EOM: EOMs intact bilaterally Direct Ophthalmoscopy: normal light reflex Neck Neck: Yes no lymphadenopathy and Yes supple Thyroid: Thyroid normal Chest Chest palpation & inspection: normal inspection of the chest Resp Effort & Inspection: normal respiratory effort Auscultation: clear to auscultation bilaterally, no crackles, no rhonchi and no wheezes Cardio Rate: regular rate Rhythm: regular rhythm Peripheral pulses: radial pulses present and dorsalis pedis present GI Inspection: Yes normal to inspection Palpation (GI): Soft to palpation, nontender and No hepatosplenomegaly present Auscultation: normoactive bowel sounds Skin General skin exam: no rashes or lesions noted Neuro General: No confusion Cranial nerves: Yes Equal, round and reactive pupils present and Yes Normal hearing present Cognition (Neuro): normal cognition Gait exam (Neuro): Normal gait present Motor exam (neuro): 5/5 motor strength present throughout Deep tendon reflexes (DTR's): Right brachioradialis reflex intensity grade: 2+, Left brachioradialis reflex intensity grade: 2+, Right patellar reflex intensity grade: 2+ and Left patellar reflex intensity grade: 2+ Extrem General: No edema Office Procedures Flu Questionnaire Does the patient have a severe egg allergy?: No Immunizations flu vacc [id number] 6mos up(PF) 60 mcg(15 mcgx4)/0.5 mL IM syringe Performing Provider: LIDA Au Performing Location: [facility] [place] [facility] Documented (not given) by: YARITZA Norman on 04/22/23 07:48 Reason Not Given: Patient Refused Assessment and Plan Assessment & Plan (1) Vitamin D deficiency: Code(s): E55.9 - Vitamin D deficiency, unspecified Plan: Vitamin-D level ordered (2) Morbid obesity: Code(s): E66.01 - Morbid (severe) obesity due to excess calories Plan: Diet and exercise to reduce BMI. Patient reports was previously going to undergo gastric sleeve however she was sick at the time and she has decided not to proceed with procedure. (3) Physical exam, annual: Code(s): Z00.00 - Encounter for general adult medical examination without abnormal findings Plan: Follow-up in 1 year. Plan Follow-up in 1 year sooner if needed. Orders: Orders Influenza [id number] Immunization Today Z23 - Encounter for immunization Lipid Panel Today Z13.220 - Encounter for screening for lipoid disorders TSH reflex Free T4 Today Z13.29 - Encounter for screening for other suspected endocrine disorder Complete Blood Count Auto Diff Today Z13.0 - Encounter for screening for diseases of the blood and blood-forming organs and certain disorders involving the immune mechanism Comprehensive [place]. Panel Fast Today Z13.1 - Encounter for screening for diabetes mellitus Vitamin D 25-OH Total Today E55.9 - Vitamin D deficiency, unspecified Coding Level of Care Code Est Pt Prev Care 18-39y(54104) Diagnoses Vitamin D deficiency E55.9 Morbid obesity E66.01 Physical exam, annual Z00.00 Additional Codes ANNABELLE-7 Assessment Billing - ANNABELLE-7 Assessment Tool: ANNABELLE-7 Assessment 75699 ([id number])
== END 2023-04-22 09:10 | disposition home or self-care (01) ==
PROVIDERS: PCP Internal Medicine; Visit Provider Nurse Practitioner Family
DX: Z00.00 Encounter for general adult medical examination without abnormal findings (principal); E55.9 Vitamin D deficiency, unspecified; E66.01 Morbid (severe) obesity due to excess calories; Z68.41 Body mass index [BMI] 40.0-44.9, adult
CPT/HCPCS: 99395

== ENCOUNTER 2024-04-28 08:55 | Outpatient (REF) | payer OTHER, SELFPAY ==
--- NOTE | ~2024-04-28 | US_ITS ---
EXAMINATION: US OBSTETRICAL ULTRASOUND CLINICAL INFORMATION: First trimester spotting. COMPARISON: February 17, 2021. LMP: February 10, 2024. Gestational age by maternal dates is 11 weeks 1 day. Estimated date of delivery by maternal dates is November 16, 2024. TECHNIQUE: Ultrasound of the maternal pelvis is performed using transabdominal and transvaginal transducers. Transvaginal imaging is performed due to inadequate visualization transabdominally. M-mode Doppler is also performed. FINDINGS: There is a single intrauterine gestational sac with visible yolk sac, embryo/fetus, and cardiac activity. There is no significant subchorionic hemorrhage or hematoma. HR: 0 beats per minute. CRL (crown rump length): 1.0 cm (7 weeks 1 day +/- 4 days). VEE (estimated date of delivery): December 14, 2024 +/- 4 days. MATERNAL ADNEXA: The right maternal ovary measures 3.0 x 1.3 x 1.7 cm. The left maternal ovary measures 3.1 x 2.0 x 2.2 cm. Question left hydrosalpinx. No other adnexal mass suspected. No maternal pelvic ascites. US/US OB <= 14 weeks fetus IMPRESSION: Single intrauterine gestation. No heart beat identified. demise is suspected. Question left hydrosalpinx. Electronically signed by: Jean Dutton MD 04/28/2024 12:34 PM [facility]
[2024-04-28 10:48] LABS: HCG Quantitative 2481 mIU/mL
== END 2024-04-28 08:56 | disposition home or self-care (01) ==
LOC: HO.US 08:55
PROVIDERS: PCP Internal Medicine; Visit Provider Obstetrics & Gynecology
DX: O26.851 Spotting complicating pregnancy, first trimester (principal)
CPT/HCPCS: 36415; 76801; 84702; 99212

== ENCOUNTER 2024-04-28 10:22 | Outpatient (AMB) | payer OTHER, SELFPAY ==
--- NOTE | 2024-04-28 10:22 | MHC.OFFVIS ---
Vital Signs 04/28/24 10:23 Height 5 ft 2 in Weight 235 lb 2 oz BMI 43.0 BP 128/66 Blood Pressure Location Lt brachial Position Sitting Intake Visit Reasons: ultra sound follow up/HCG Allergies carrot [CARROT] Allergy (Intermediate, Verified 04/28/24 10:23) itchy mouth and lips raw vegetable Allergy (Intermediate, Verified 04/28/24 10:23) Itchy mouth and lips FRUIT Allergy (Intermediate, Uncoded 04/28/24 10:23) itchy mouth and lips HPI Comments Details: Presenting with newly diagnosis recent urine test LMP 11 weeks ago complaining of pelvic cramping and spotting. The patient went to the emergency room yesterday ultrasound and hCG was done no records available, according to the patient there was no heart rate Ultrasound done today, no official report available, unofficial reading showed a CRL of 1.01 cm with no heart rate, gestational sac present, with an embryo and questionable yolk sac Blood type A positive HCG quantitative 2481 HCG quantitative done at [facility] emergency room yesterday was 2399 PFSH Medical History Obesity affecting in third trimester, antepartum ASCUS with positive high risk HPV Encounter for PPD skin test reading Constipation Surgical History Hx of tonsillectomy History of laparoscopic cholecystectomy Family History Mother History of hypertension History of prediabetes Maternal Grandmother History of uncontrolled diabetes Maternal Grandfather Hx of cardiac arrest Daughter Brain cancer Social History Household Members: Spouse and Children Housing: House Are you a primary home care assistant to a significant other at home: Yes (1 yr old child) Do you presently have visiting nurse or other home services: No Alcohol intake: never Patient Tobacco Use Status: Never used Tobacco e-Cigarette/Vaping Use: Never Used Second Hand Smoke Exposure: No service: No Current occupational status: employed 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 In addition discussed with the patient the ultrasonographic diagnostic for diagnosis of missed A/B CRL of 7 mm and above with no heart rate. HCG went up last 24 hours Options of treatment discussed with the patient include expectant management will repeat hCG possible repeat ultrasound in 24 hours versus medical termination of . All pros and cons, risks and benefits of each approach were discussed with the patient, the patient would like to repeat hCG tomorrow and schedule an appointment within 24 hours. Instructions given the patient to call or go to emergency room in case of vaginal bleeding and or cramping. All questions answered, the patient verbalized understanding. This note was generated with a voice recognition program. Some errors may have been overlooked during the review of this note. Sometimes these errors may affect the content or meaning of a given sentence. Orders: Orders HCG Quantitative 04/29/24 O26.851 - Spotting complicating , first trimester Coding Level of Care Code Est Pt Level 3 (55786) Diagnoses Spotting in first trimester O26.851
[2024-04-28 10:23] VITALS: BP 128/66; BMI 43.0
== END 2024-04-28 11:54 | disposition home or self-care (01) ==
LOC: HO.HWS 10:22
PROVIDERS: PCP Internal Medicine; Visit Provider Obstetrics & Gynecology
DX: O26.851 Spotting complicating pregnancy, first trimester (principal)
CPT/HCPCS: 99213

== ENCOUNTER 2024-04-29 07:45 | Outpatient (REF) | payer OTHER, SELFPAY ==
[2024-04-29 08:27] LABS: HCG Quantitative 1958 mIU/mL
== END 2024-04-29 07:46 | disposition home or self-care (01) ==
LOC: HO.LAB 07:45
PROVIDERS: PCP Internal Medicine; Visit Provider Obstetrics & Gynecology
DX: O26.851 Spotting complicating pregnancy, first trimester (principal); O02.1 Missed abortion
CPT/HCPCS: 36415; 84702; 99212

== ENCOUNTER 2024-04-29 09:56 | Outpatient (AMB) | payer OTHER, SELFPAY ==
[2024-04-29 09:56] VITALS: BP 120/84; BMI 43.0
--- NOTE | 2024-04-29 09:56 | MHC.OFFVIS ---
Vital Signs 04/29/24 09:56 Height 5 ft 2 in Weight 235 lb BMI 43.0 BP 120/84 Blood Pressure Location Lt brachial Position Sitting Intake Visit Reasons: HCG follow up Allergies carrot [CARROT] Allergy (Intermediate, Verified 04/29/24 09:56) itchy mouth and lips raw vegetable Allergy (Intermediate, Verified 04/29/24 09:56) Itchy mouth and lips FRUIT Allergy (Intermediate, Uncoded 04/29/24 09:56) itchy mouth and lips HPI Comments Details: Presenting for follow-up complaining of vaginal spotting and cramping. Ultrasound done yesterday showed the following: There is a single intrauterine gestational sac with visible yolk sac, embryo/fetus, and cardiac activity. There is no significant subchorionic hemorrhage or hematoma. HR: 0 beats per minute. CRL (crown rump length): 1.0 cm (7 weeks 1 day +/- 4 days). VEE (estimated date of delivery): December 14, 2024 +/- 4 days. MATERNAL ADNEXA: The right maternal ovary measures 3.0 x 1.3 x 1.7 cm. The left maternal ovary measures 3.1 x 2.0 x 2.2 cm. Question left hydrosalpinx. No other adnexal mass suspected. No maternal pelvic ascites. US/US OB <= 14 weeks fetus IMPRESSION: Single intrauterine gestation. No heart beat identified. demise is suspected. Question left hydrosalpinx. HCG done today was 1958 dropped from 2481 yesterday Blood type A positive [facility] Medical History Obesity affecting in third trimester, antepartum ASCUS with positive high risk HPV Encounter for PPD skin test reading Constipation Surgical History Hx of tonsillectomy History of laparoscopic cholecystectomy Family History Mother History of hypertension History of prediabetes Maternal Grandmother History of uncontrolled diabetes Maternal Grandfather Hx of cardiac arrest Daughter Brain cancer Social History Household Members: Spouse and Children Housing: House Are you a primary healthcare network consultant to a significant other at home: Yes (1 yr old child) Do you presently have visiting nurse or other home services: No Alcohol intake: never Patient Tobacco Use Status: Never used Tobacco e-Cigarette/Vaping Use: Never Used Second Hand Smoke Exposure: No service: No Current occupational status: employed 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 Current occupational exposures/hazards: No Sexual orientation: Straight/Heterosexual Gender identity: Male and Female Cognitive needs: No Hearing needs: No Vision needs: Yes Female Reproductive History Menstrual Age of Menarche: 11 Review of Systems Const All systems reviewed & are unremarkable except as noted in HPI and below Reports as per HPI and Reports no additional complaints GI Reports no additional complaints Reports no additional complaints Physical Exam Vital Signs: Last Vital Signs BP 120/84 04/29/24 09:56 BMI result Body Mass Index 43.0 Assessment & Plan Assessment & Plan (1) Missed ab: Code(s): O02.1 - Missed Category: Medical Plan: Discussed with the patient the finding on ultrasound showing an embryo measuring more than 7 mm with no evidence of heartbeat which is a diagnostic finding for failure by ultrasound according to the Society of radiologists in ultrasound multi specialty consensus conference on early 1st trimester diagnosis of miscarriage and exclusion of a viable intrauterine . Discussed with the patient options of treatment including expectant management, medical termination of or suction D&C. Discussed with the patient the following options: Option 1: Expectant management consists of watchful waiting for tissue to pass. Clinical issues that were addressed & discussed with the patient include the following but not limited to: -frequency of follow-up visits should be every 1-2 weeks until completion. -confirmation of an empty uterus will follow-up afterwards. -the time at which consideration for a different treatment being not more than 2-3 weeks of expectant management, -options if the does not pass include medical versus surgical treatment . -and any symptoms that require prompt evaluation including but not limited to: vaginal bleeding, pelvic pain, fever, nausea or vomiting and others. -In addition, discussed with the patient complications of expectant management including but not limited to: incomplete emptying, hemorrhage and infection which warrants timely evaluation and likely progression to medication was surgical management . -Discussed with the patient a rare possible complication with expectant mentioned called DIC, I explained to the patient that with prolonged expectant management demise can lead to hematological abnormality causing increase in bleeding tendency and other complications, the risk of which is around 10% at 4 weeks post diagnosis and can increase with further delayed management. Explained to the patient the DIC is a very serious condition that he, as care for an prompt management to prevent significant morbidity and mortality. Option 2. Medical termination of : Explained to the patient that with mifepristone and misoprostol, this option results in a higher rate of successful termination of , lower risk of bleeding and infection and surgical intervention. Comprehensive counseling about the expected experience, symptoms, recovery, and the possibility of needing a surgical procedure if medication is unsuccessful was provided. Options 3 includes suction D&C , which is a surgical procedure done in the operating room under anesthesia , discussed with the patient benefits and the risks of the surgical procedure . Explained to the patient the risks including but not limited to: Risk of bleeding, infection, uterine perforation and possible injury to bladder, bowel, ureter, blood vessels , possible need for blood transfusion, possible development of intrauterine adhesions affecting future fertility . The patient decided to proceed with medical termination of using Misoprostol/Mifepristone. I discussed with her the risk of uterine rupture with Misoprostol, as well as the potential development of congenital abnormalities associated with Misoprostol, including but not limited to scalp or skull defects, cranial nerve palsies (Moebius syndrome), and limb deficiencies (e.g., equinovarus). I reviewed the steps of the procedure with the patient, and she confirmed her willingness and ability to complete each step. instructions were given to the patient to start with mifepristone 200 mg p.o. followed by 4 tablets of 200 mcg misoprostol for a total of 800 mcg vaginally after 24 hours. Comprehensive counseling about the expected experience, symptoms, recovery, and the possibility of needing a surgical procedure if medication is unsuccessful was provided. I explained to the patient that after taking Mifepristone, vaginal bleeding or pelvic cramping may not begin immediately. In most cases, if these symptoms are present, the patient should still take Misoprostol since Mifepristone alone is not highly effective. However, Misoprostol should not be taken if expulsion of the gestation has been confirmed through an emergency visit. Approximately 1 to 5 percent of patients may expel the conceptus after a single dose of Mifepristone only, without Misoprostol. I reviewed typical symptoms and the experience of passing gestational tissue with the patient. I emphasized concerning symptoms to watch for, to call the office or go to emergency room for including but not limited: If nothing /no symptoms occurred after taking both medications , severe abdominal pain that persists after passing tissue, persistent pain without bleeding or tissue passage, bleeding that does not decrease after passing tissue, or soaking two maxi pads per hour for two consecutive hours. Lastly, I explained to the patient that after taking Misoprostol, is likely to occur within the next several hours, with a 93% proportion of patients aborting within four hours after taking vaginal Misoprostol. The patient asked questions, verbalized understanding, and agreed with the plan & signed the Mifepristone agreement and was provided with a pill of 200 mg Mifepristone (lot number [id number] ) and a copy of the instructions were given to the patient. Instructions given the patient to schedule a 2 week follow-up appointment with hCG quantitative, ordered. This note was generated with a voice recognition program. Some errors may have been overlooked during the review of this note. Sometimes these errors may affect the content or meaning of a given sentence. Orders: Orders HCG Quantitative 2 Weeks O02.1 - Missed Medications: New misoprostol Insaert 800 mcg vaginal dose, 24 hours after Mifepristone dose by mouth 800 mcg (4 x 200 mcg) vaginal ONCE 1 day 4 tabs 0RF Coding Level of Care Code Est Pt Level 3 (07859) Diagnoses Missed ab O02.1
== END 2024-04-29 11:15 | disposition home or self-care (01) ==
LOC: HO.HWS 09:56
PROVIDERS: PCP Internal Medicine; Visit Provider Obstetrics & Gynecology
DX: O02.1 Missed abortion (principal)
CPT/HCPCS: 99213

== ENCOUNTER 2024-06-25 12:20 | Outpatient (REF) | payer OTHER, SELFPAY ==
[2024-06-25 12:59] LABS: HCG Quantitative < 2 mIU/mL
== END 2024-06-25 12:21 | disposition home or self-care (01) ==
LOC: HO.LAB 12:20
PROVIDERS: PCP Internal Medicine; Visit Provider Obstetrics & Gynecology
DX: O02.1 Missed abortion (principal)
CPT/HCPCS: 36415; 84702

== ENCOUNTER 2024-06-30 12:26 | Outpatient (AMB) | payer OTHER, SELFPAY ==
--- NOTE | 2024-06-30 12:29 | MHC.OFFVIS ---
Intake Visit Reasons: hcg follow up Assistant Corporation Counsel: Assistant Corporation Counsel Present (Latesha) Accompanied by: Self / Same As Patient Allergies carrot [CARROT] Allergy (Intermediate, Verified 06/30/24 12:29) itchy mouth and lips raw vegetable Allergy (Intermediate, Verified 06/30/24 12:29) Itchy mouth and lips FRUIT Allergy (Intermediate, Uncoded 04/29/24 09:56) itchy mouth and lips HPI Comments Details: Presenting for hCG follow-up after medical termination of a missed with mifepristone and misoprostol taken on 04/29/2024 followed by passage of heavy vaginal bleeding, the patient went to [facility] emergency room underwent suction D&C for incomplete and received 2 units of packed RBCs. The patient currently is doing well with no complaints, novaginal bleeding or pelvic cramping. HCG done on 06/25 was less than 2 PFSH Medical History Obesity affecting in third trimester, antepartum ASCUS with positive high risk HPV Encounter for PPD skin test reading Constipation Surgical History Hx of tonsillectomy History of laparoscopic cholecystectomy Family History Mother History of hypertension History of prediabetes Maternal Grandmother History of uncontrolled diabetes Maternal Grandfather Hx of cardiac arrest Daughter Brain cancer Social History Household Members: Spouse and Children Housing: House Are you a primary customer care agent to a significant other at home: Yes (1 yr old child) Do you presently have visiting nurse or other home services: No Alcohol intake: never Patient Tobacco Use Status: Never used Tobacco e-Cigarette/Vaping Use: Never Used Second Hand Smoke Exposure: No service: No Current occupational status: employed 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 Current occupational exposures/hazards: No Sexual orientation: Straight/Heterosexual Gender identity: Male and Female Cognitive needs: No Hearing needs: No Vision needs: Yes Female Reproductive History Menstrual Age of Menarche: 11 Review of Systems Const All systems reviewed & are unremarkable except as noted in HPI and below Reports as per HPI and Reports no additional complaints GI Reports no additional complaints Reports no additional complaints Assessment & Plan Assessment & Plan (1) Missed ab: Comment: Status post medical termination and suction D&C Code(s): O02.1 - Missed Category: Medical Plan: Discussed with the patient the results of hCG less than 2. Offered the patient different options of control, the patient declined at this point. All questions answered the patient verbalized understanding. Coding Level of Care Code Est Pt Level 3 (61219) Diagnoses Missed ab O02.1
== END 2024-06-30 12:55 | disposition home or self-care (01) ==
PROVIDERS: PCP Internal Medicine; Visit Provider Obstetrics & Gynecology
DX: O02.1 Missed abortion (principal)
CPT/HCPCS: 99213

== ENCOUNTER → 2024-06-30 12:26 | Outpatient (BNVA) | payer OTHER, SELFPAY | PROVIDERS: PCP Internal Medicine; Visit Provider Obstetrics & Gynecology | DX: O02.1 Missed abortion (principal) | CPT/HCPCS: 99212 ==